=== PATIENT | male | born 2000 | race Caucasian/White ===

== ENCOUNTER 2020-11-27 20:46 | Inpatient (IN) | payer MEDICAID, SELFPAY ==
[~2020-11-27] VITALS: Ht 180.3 cm; Wt 101.6 kg
[2020-11-27 20:51] VITALS: BP 118/76
[2020-11-27] MEDS ORDERED: NACL 0.9% 1,000 ML IV ONE (20:55)
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
--- NOTE | 2020-11-27 21:00 | NUR ---
IV 20 G RAC EST. LABS DRAWN AND HAND GIVEN TO SINA CASE MANAGER SPECIALIST AT BEDSIDE.
[2020-11-27 21:10] LABS: BASOPHILS % (AUTO) 0.4 % (0.0-2.0); EOSINOPHILS # (AUTO) 0.1 K/uL (0-0.4); EOSINOPHILS % (AUTO) 1.2 % (0.0-4.0); HEMATOCRIT 45.5 % (36-52); HEMOGLOBIN 15.8 g/dL (12.0-18.0); LYMPHOCYTES # (AUTO) 1.6 K/uL (2.0-11.5); LYMPHOCYTES % (AUTO) 19.9 % (20.5-51.1); MEAN CORPUSCULAR HEMOGLOBIN 32 pg (27-31); MEAN CORPUSCULAR HGB CONC 35 g/dL (33-37); MEAN CORPUSCULAR VOLUME 93.1 fL (80-94); MONOCYTES # (AUTO) 0.7 K/uL (0.8-1.0); MONOCYTES % (AUTO) 9.2 % (1.7-9.3); NEUTROPHILS # (AUTO) 5.6 K/uL (1.8-7.7); NEUTROPHILS % (AUTO) 69.3 % (42.2-75.2); PLATELET COUNT (AUTO) 344 K/uL (140-450); RED BLOOD CELL COUNT(AUTO) 4.89 MIL/uL (4.20-6.10)
--- NOTE | 2020-11-27 21:27 | NUR ---
ermd at bedside.
[2020-11-27 21:29] LABS: ALBUMIN 4.7 g/dL (3.4-5.0); ANION GAP 16.6 (8-16); CARBON DIOXIDE 29.9 mmol/L (21-32); CREATININE 1.3 mg/dL (0.6-1.3); POTASSIUM 3.5 mmol/L (3.5-5.1); TOTAL BILIRUBIN 0.4 mg/dL (0.0-1.0)
[2020-11-27] MEDS ORDERED: MORPHINE SULFATE 4 MG/ML SYR IVP ONE (21:35)
[2020-11-27] MEDS ORDERED: ONDANSETRON 4 MG/2 ML VIAL IVP ONE (21:35)
[2020-11-27] MEDS ORDERED: NACL 0.9% 1,000 ML IV SCH (21:35)
--- NOTE | 2020-11-27 21:47 | NUR ---
CT WITH CONTRAST CONSENT OBTAINED.
--- NOTE | 2020-11-27 22:28 | NUR ---
PT TRANSPORTED TO CT VIA W/C
[2020-11-27] MEDS ORDERED: PANTOPRAZOLE 40 MG INJ VIAL IVP ONE (22:30)
--- NOTE | 2020-11-27 23:01 | NUR ---
PT AMBULATED TO RESTROOM WITH STEADY GAIT.
--- NOTE | 2020-11-27 23:03 | NUR ---
URINE SAMPLE WALKED TO LAB AND HAND GIVEN TO NINA SIBLEY TECH.
[2020-11-27 23:09] LABS: APPEARANCE,URINE SL CLOUDY (CLEAR); BILIRUBIN,URINE NEGATIVE (NEGATIVE); BLOOD, URINE NEGATIVE (NEGATIVE); COLOR,URINE YELLOW (YELLOW); LEUKOCYTE ESTERASE ,URINE NEGATIVE (NEGATIVE); NITRITE, URINE NEGATIVE (NEGATIVE); UGLUCOSE NEGATIVE (NEGATIVE)
--- NOTE | 2020-11-27 23:33 | NUR ---
MED REC CONTAINED. PT DENIES DAILY MEDICATION ADMINISTRATION.
--- NOTE | 2020-11-27 23:35 | NUR ---
LUCIE OF NARES COLLECTED AND HAND GIVEN TO VÍCTOR DIAMOND DIE MAKER, AT BEDSIDE.
--- NOTE | 2020-11-27 23:58 | NUR ---
PT REPORTS INCREASING PAIN, 01/04. ERMD MADE AWARE, AWAITING NEW ORDERS.
[2020-11-28] MEDS ORDERED: MORPHINE SULFATE 2 MG/ML SYR IVP ONE
[2020-11-28] MEDS ORDERED: POTASSIUM CHLORIDE 40 MEQ, LIDOCAINE MPF 1% 25 MG in NACL 0.9% 250 ML IV PRN (00:10)
[2020-11-28] MEDS ORDERED: ACETAMINOPHEN 325 MG TAB PO PRN (00:10)
[2020-11-28] MEDS ORDERED: ZOLPIDEM 5 MG TAB PO PRN (00:10)
[2020-11-28] MEDS ORDERED: MORPHINE SULFATE 2 MG/ML SYR IVP PRN (00:10)
[2020-11-28] MEDS ORDERED: DOCUSATE SODIUM 100 MG GELCAP PO PRN (00:10)
[2020-11-28] MEDS ORDERED: HYDROcodone/APAP 7.5/325 MG 1 TAB PO PRN (00:10)
[2020-11-28] MEDS ORDERED: guaiFENesin DM 200/20 MG-10 ML 10 ML UDC PO PRN (00:10)
[2020-11-28] MEDS ORDERED: ONDANSETRON 4 MG/2 ML VIAL IM/IVP PRN (00:10)
--- NOTE | 2020-11-28 00:25 | NUR ---
XRAY AT BEDSIDE.
[2020-11-28] MEDS: DEXT 5% /NACL 0.9% 1,000 ML IV SCH ×3 (00:43→14:28)
[2020-11-28 00:49] LABS: PROTHROMBIN TIME 9.7 secs (10.8-13.4)
[2020-11-28 00:50] LABS: CHOL/HDL RATIO 2.2 (1-4.5); FREE T4 (FREE THYROXINE) 1.03 ng/dL (0.76-1.46); MAGNESIUM 1.9 mg/dL (1.8-2.4); PHOSPHORUS 3.4 mg/dL (2.5-4.9); THYROID STIMULATING HORMONE 2.24 uIU/mL (0.34-3.74)
[2020-11-28 00:58] LABS: BARBITURATE, URINE NEGATIVE ng/ml (NEG <=200); BENZODIAZEPINE, URINE NEGATIVE ng/mL (NEG <=200); CANNABINOID, URINE NEGATIVE ng/mL (NEG <=50); COCAINE, URINE POSITIVE ng/mL (NEG <=300); OPIATE, URINE POSITIVE ng/mL (NEG <=2000); PHENCYCLIDINE SCREEN,URINE NEGATIVE ng/mL (NEG <=25)
--- NOTE | 2020-11-28 01:03 | NUR ---
CALLED ASHLEE DA SILVA TO GIVE PT REPORT. ETA FROM ER TO FLOOR APPROXIMATELY 5-10MINS.
--- NOTE | 2020-11-28 01:08 | NUR ---
Patient will be admitted to care of DR. RIDLEY . Admited to [facility]. Will go to room 120B. Belongings list completed. Pt w/c assisted to the floor by EMT at this time.
[2020-11-28 01:15] VITALS: BP 131/68
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
--- NOTE | 2020-11-28 03:21 | NUR ---
ASLEEP, AROUSABLE TO VERBAL, NO DISTRESS, FIXED IV PUMP BECAUSE IT'S BEEPING, CALL LIGHT WITHIN REACH.
[2020-11-28 04:00] VITALS: BP 99/50
--- NOTE | 2020-11-28 07:43 | NUR ---
PATIENT IS STABLE, NO DISTRESS, ALL NEEDS ATTENDED, KEPT COMFORTABLE, CALL LIGHT WITHIN REACH, BEDSIDE ENDORSEMENT GIVEN TO AM SHIFT RN.
--- NOTE | 2020-11-28 07:44 | NUR ---
RECEIVED REPORT FROM HEEL ROOM SUPERVISOR NURSE. PATIENT LYING DOWN IN BED SLEEPING, AROUSABLE BY VOICE. NO DISTRESS NOTED. DENIES ANY PAIN. DENIES NAUSEA/VOMITING AT THIS TIME. AAOX4, IV SITE INTACT, PATENT, AND INFUSING IVF PER MD ORDERS. REVIEWED PLAN OF CARE WITH PATIENT. PATIENT VERBALIZED UNDERSTANDING. SAFETY MEASURES IN PLACE, CALL LIGHT WITHIN REACH. WILL CONTINUE TO MONITOR.
[2020-11-28 08:00] VITALS: BP 99/50
--- NOTE | 2020-11-28 08:37 | NUR ---
SCHEDULED MEDICATIONS DUE GIVEN. WILL CONTINUE TO MONITOR.
[2020-11-28] MEDS ORDERED: PANTOPRAZOLE 40 MG INJ VIAL IVP SCH (09:00)
--- NOTE | 2020-11-28 09:00 | NUR ---
PATIENT HAS BEEN SCREENED AND CATEGORIZED MODERATE NUTRITION RISK. PATIENT WILL BE SEEN WITHIN 3-5 DAYS OF ADMISSION. 11/30/20 12/02/[address]
--- NOTE | 2020-11-28 11:00 | NUR ---
SBO FOLLOW THROUGH COMPLETED AT THIS TIME. WILL CONTINUE TO MONITOR.
--- NOTE | 2020-11-28 12:34 | NUR ---
PATIENT LYING DOWN IN BED TALKING WITH FAMILY ON PHONE. NO DISTRESS NOTED. DENIES PAIN AND NAUSEA AFTER EATING FULL LIQUID LUNCH. WILL CONTINUE TO MONITOR.
[2020-11-28 16:00] VITALS: BP 95/55
--- NOTE | 2020-11-28 17:00 | NUR ---
PATIENT WANTS TO LEAVE AMA, FEELS BETTER. SURGEON DR. SHRESTHA CLEARED PATIENT TO GO HOME TODAY IF HE TOLERATES SOFT DIET. PATIENT TOLERATED PUDDINGS AND WANTS TO GO HOME BECAUSE HE NEEDS TO TAKE CARE OF HIS CHILD TONIGHT. NOTIFIED DR. RIDLEY. DR. RIDLYE VERBALIZED UNDERSTANDING. IV SITE REMOVED WITH MINIMAL BLOOD AND LUMEN COMPLETELY INTACT. PATIENT LEFT AMA AT THIS TIME IN STABLE CONDITION.
[2020-11-29 12:07] LABS: T4 (THYROXINE) 7.1 ug/dL (4.5-12.0)
== END 2020-11-28 17:00 | disposition left against medical advice (07) | DRG 252 ==
LOC: MED 20:46 → MMU 11-28 00:07 → MTU 11-28 01:04
PROVIDERS: ADMIT Family Medicine; ATTEND Family Medicine
DX: K66.0 Peritoneal adhesions (postprocedural) (postinfection) (principal); E87.2 Acidosis; F17.210 Nicotine dependence, cigarettes, uncomplicated; Q63.1 Lobulated, fused and horseshoe kidney; R74.01 Elevation of levels of liver transaminase levels; E78.5 Hyperlipidemia, unspecified; Z53.29 Procedure and treatment not carried out because of patient's decision for other reasons; Z20.822 Contact with and (suspected) exposure to COVID-19
CPT/HCPCS: 36415; 71045; 74250; 80053; 80305; 81003; 82150; 83036; 83605; 83690; 83735; 83880; 84100; 84436; 84439; 84443; 84479; 84484; 85025; 85610; 85730; 87081; 96361; 96374; 96375; 96376; 99291; 99292; C9113; J2270; J2405; Q9967

== ENCOUNTER 2021-02-23 16:30 | Emergency (ER) | payer MEDICAID, SELFPAY ==
[~2021-02-23] VITALS: Ht 180.3 cm; Wt 102.1 kg
[2021-02-23 16:42] VITALS: BP 156/76
[2021-02-23] MEDS ORDERED: MORPHINE SULFATE 4 MG/ML SYR IVP ONE (16:55)
[2021-02-23] MEDS ORDERED: NACL 0.9% 1,000 ML IV ONE (16:55)
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
--- NOTE | 2021-02-23 17:00 | NUR ---
DR VELA AT BEDSIDE EXAMINING PT
--- NOTE | 2021-02-23 17:15 | NUR ---
PT TAKEN TO CT SCAN VIA W/C
--- NOTE | 2021-02-23 17:20 | NUR ---
BLOOD LABS COLLECTED AND SENT TO LAB
--- NOTE | 2021-02-23 17:20 | NUR ---
PT RETURNED FROM CT SCAN
[2021-02-23 17:31] LABS: BASOPHILS % (AUTO) 0.5 % (0.0-2.0); EOSINOPHILS # (AUTO) 0.1 K/uL (0-0.4); EOSINOPHILS % (AUTO) 1.1 % (0.0-4.0); HEMATOCRIT 39.9 % (36-52); HEMOGLOBIN 13.7 g/dL (12.0-18.0); LYMPHOCYTES % (AUTO) 15.5 % (20.5-51.1); MEAN CORPUSCULAR HEMOGLOBIN 32 pg (27-31); MEAN CORPUSCULAR HGB CONC 34 g/dL (33-37); MEAN CORPUSCULAR VOLUME 93.2 fL (80-94); MONOCYTES # (AUTO) 0.5 K/uL (0.8-1.0); MONOCYTES % (AUTO) 7.9 % (1.7-9.3); NEUTROPHILS # (AUTO) 4.8 K/uL (1.8-7.7); PLATELET COUNT (AUTO) 247 K/uL (140-450); RED BLOOD CELL COUNT(AUTO) 4.28 MIL/uL (4.20-6.10); RED CELL DISTRIBUTION WIDTH 13.5 % (11.6-13.7); WHITE BLOOD COUNT (AUTO) 6.5 K/uL (4.8-10.8)
[2021-02-23 17:40] LABS: ANION GAP 12.2 (8-16); CARBON DIOXIDE 26.7 mmol/L (21-32); CREATININE 1.1 mg/dL (0.6-1.3); POTASSIUM 3.9 mmol/L (3.5-5.1); TOTAL BILIRUBIN 0.4 mg/dL (0.0-1.0)
[2021-02-23] MEDS ORDERED: DICYCLOMINE HCL LIQUID 10 MG/5 ML UDC ONE (17:48)
[2021-02-23] MEDS ORDERED: ALUMINUM HYD/MAG/SIMETHICONE 30 ML UDC ONE (17:48)
[2021-02-23] MEDS ORDERED: ONDA4TAB PO (17:56)
[2021-02-23] MEDS ORDERED: FAMO-90 PO (17:56)
--- NOTE | 2021-02-23 18:00 | NUR ---
PT STATES "THE PAIN IS COMING BACK" GI COCKTAIL ADMINISTERED.
[2021-02-23] MEDS: DICYCLOMINE HCL LIQUID 20 MG, ALUMINUM HYD/MAG/SIMETHICONE 30 ML, LIDOCAINE VISCOUS 2% ... PO ONE ×6 (18:04→18:12)
[2021-02-23 18:30] VITALS: BP 139/52
--- NOTE | 2021-02-23 18:30 | NUR ---
Patient discharged with v/s stable. Written and verbal after care instructions given and explained. Patient alert, oriented and verbalized understanding of instructions. Ambulatory with steady gait. All questions addressed prior to discharge. ID band removed. Patient advised to follow up with PMD. Rx of PEPCID AND ZOFRAN given. Patient educated on indication of medication including possible reaction and side effects. Opportunity to ask questions provided and answered.
[2021-02-23 19:15] LABS: APPEARANCE,URINE CLEAR (CLEAR); BILIRUBIN,URINE NEGATIVE (NEGATIVE); BLOOD, URINE NEGATIVE (NEGATIVE); COLOR,URINE YELLOW (YELLOW); LEUKOCYTE ESTERASE ,URINE NEGATIVE (NEGATIVE); NITRITE, URINE NEGATIVE (NEGATIVE); UGLUCOSE NEGATIVE (NEGATIVE)
== END 2021-02-23 18:30 | disposition home or self-care (01) ==
LOC: MED 16:30
DX: R10.12 Left upper quadrant pain (principal); R11.10 Vomiting, unspecified; R10.11 Right upper quadrant pain; Z98.890 Other specified postprocedural states
CPT/HCPCS: 36415; 74176; 80053; 81003; 83605; 83690; 85025; 87040; 96361; 96374; 99284; J2270; J7030

== ENCOUNTER 2021-12-11 18:56 | Emergency (ER) | payer MEDICAID ==
[~2021-12-11] VITALS: Ht 180.3 cm; Wt 101.2 kg
[~2021-12-11 18:56] MED LIST: FAMO-90 PO; ONDA4TAB PO
[2021-12-11 19:02] VITALS: BP 127/55
[2021-12-11] MEDS ORDERED: NACL 0.9% 1,000 ML IV SCH (19:25)
[2021-12-11] MEDS ORDERED: MORPHINE SULFATE 4 MG/ML SYR IVP ONE ×2 (19:25→22:15)
[2021-12-11] MEDS ORDERED: ONDANSETRON 4 MG/2 ML VIAL IVP ONE (19:25)
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
[2021-12-11 20:10] LABS: BASOPHILS % (AUTO) 0.5 % (0.0-2.0); EOSINOPHILS # (AUTO) 0.1 K/uL (0-0.4); EOSINOPHILS % (AUTO) 2.5 % (0.0-4.0); HEMATOCRIT 38.9 % (36-52); HEMOGLOBIN 13.2 g/dL (12.0-18.0); LYMPHOCYTES # (AUTO) 1.6 K/uL (2.0-11.5); LYMPHOCYTES % (AUTO) 28.9 % (20.5-51.1); MEAN CORPUSCULAR HEMOGLOBIN 31 pg (27-31); MEAN CORPUSCULAR HGB CONC 34 g/dL (33-37); MEAN CORPUSCULAR VOLUME 90.8 fL (80-94); MONOCYTES # (AUTO) 0.5 K/uL (0.8-1.0); MONOCYTES % (AUTO) 8.9 % (1.7-9.3); NEUTROPHILS # (AUTO) 3.2 K/uL (1.8-7.7); NEUTROPHILS % (AUTO) 59.2 % (42.2-75.2); PLATELET COUNT (AUTO) 345 K/uL (140-450); RED BLOOD CELL COUNT(AUTO) 4.28 MIL/uL (4.20-6.10); RED CELL DISTRIBUTION WIDTH 13.1 % (11.6-13.7); WHITE BLOOD COUNT (AUTO) 5.5 K/uL (4.8-10.8)
--- NOTE | 2021-12-11 20:18 | NUR ---
PT BROUGHT BACK FROM CT. PT STATES RELIEF FROM PAIN.
[2021-12-11 21:15] LABS: ALBUMIN 4.1 g/dL (3.4-5.0); ANION GAP 15.9 (8-16); CARBON DIOXIDE 23.1 mmol/L (21-32); CREATININE 0.9 mg/dL (0.6-1.3); TOTAL BILIRUBIN 0.5 mg/dL (0.0-1.0)
--- NOTE | 2021-12-11 21:33 | NUR ---
Patient appears to be resting comfortably in bed. Vital Signs within normal limits. Respirations even and unlabored. VITALS SIGNS NORMAL FOR PT
[2021-12-11] MEDS ORDERED: ONDA8TAB87 PO (22:23)
[2021-12-11] MEDS ORDERED: ACET-8386 PO (22:23)
[2021-12-11] MEDS ORDERED: IBUP-2213 PO (22:23)
[2021-12-11 22:36] VITALS: BP 138/37
--- NOTE | 2021-12-11 22:36 | NUR ---
Patient discharged with v/s stable. Written and verbal after care instructions given and explained. Patient alert, oriented and verbalized understanding of instructions. Ambulatory with steady gait. All questions addressed prior to discharge. ID band removed. Patient advised to follow up with PMD. Rx of [id number], IBUPROFEN, ZOFRAN given. Opportunity to ask questions provided and answered.
--- NOTE | 2021-12-11 22:54 | NUR ---
The patient's care was reviewed and supervised by Genoveva Reeves RN.
[2021-12-11] MEDS ORDERED: ACET-5629 PO (23:10)
== END 2021-12-11 22:36 | disposition home or self-care (01) ==
LOC: MED 18:56
DX: R10.12 Left upper quadrant pain (principal); Z79.899 Other long term (current) drug therapy; Z98.890 Other specified postprocedural states
CPT/HCPCS: 36415; 74176; 80053; 83690; 85025; 96361; 96374; 96375; 96376; 99284; J2270; J2405; J7030

== ENCOUNTER 2022-02-02 10:32 | Emergency (ER) | payer MEDICAID ==
[~2022-02-02] VITALS: Ht 182.9 cm; Wt 103.9 kg
[~2022-02-02 10:32] MED LIST changes: +ACET-5629 PO; +IBUP-2213 PO; +ONDA8TAB87 PO
[2022-02-02 10:36] VITALS: BP 153/56
--- NOTE | 2022-02-02 10:39 | NUR ---
pt ambulated to lobby with steady gait
--- NOTE | 2022-02-02 10:44 | NUR ---
21 y/o male bib self c/o of swollen left side of face after popping a pimple yesterday. noted swelling extending from his cheek to the right eye/ denies any respiratory symptoms, area does not appear red, denies any pain nka pmh: denies
--- NOTE | 2022-02-02 11:17 | NUR ---
PA MOSQUERA AT PT SIDE FOR EVAL
[2022-02-02] MEDS ORDERED: IBUP-2213 PO (11:23)
[2022-02-02] MEDS ORDERED: CEPH-588 PO (11:23)
--- NOTE | 2022-02-02 11:27 | NUR ---
Patient discharged with v/s stable. Written and verbal after care instructions given. Patient alert, oriented and verbalized understanding of instructions. Ambulatory with steady gait. All questions addressed prior to discharge. ID band removed. Patient advised to follow up with PMD. Rx of Ibuproden and Keflex given. Opportunity to ask questions provided and answered.
== END 2022-02-02 11:34 | disposition home or self-care (01) ==
LOC: MED 10:32
DX: L03.211 Cellulitis of face (principal); R03.0 Elevated blood-pressure reading, without diagnosis of hypertension
CPT/HCPCS: 99284

== ENCOUNTER 2023-05-06 17:33 | Emergency (ER) | payer MEDICAID ==
[~2023-05-06] VITALS: Ht 180.3 cm; Wt 102.1 kg
[~2023-05-06 17:33] MED LIST changes: +CEPH-588 PO
[2023-05-06 17:37] VITALS: BP 130/82; PULSE 82; RESP 18; TEMP 97.5; O2SAT 98
[2023-05-06] MEDS ORDERED: LIDOCAINE/EPI MPF 1%1:200000 30 ML VIAL INJ ONE (18:15)
[2023-05-06 18:34] VITALS: BP 130/82; PULSE 82; RESP 18; TEMP 97.5; O2SAT 98
[2023-05-06] MEDS ORDERED: SULFAMETH/TRIMETH DS 800/160MG 1 TAB PO ONE (19:30)
[2023-05-06] MEDS ORDERED: cephALEXin 500 MG CAP PO ONE (19:30)
[2023-05-06] MEDS ORDERED: KETOROLAC 60 MG/2 ML VIAL IM ONE (19:30)
[2023-05-06] MEDS ORDERED: CEPH-588 PO (19:32)
[2023-05-06] MEDS ORDERED: SULF-59 PO (19:36)
[2023-05-06] MEDS ORDERED: NAPR-54 PO (20:17)
== END 2023-05-06 20:43 | disposition home or self-care (01) ==
LOC: MED 17:33
DX: S00.31XA Abrasion of nose, initial encounter (principal); L02.416 Cutaneous abscess of left lower limb; L02.415 Cutaneous abscess of right lower limb; L03.116 Cellulitis of left lower limb; L03.115 Cellulitis of right lower limb; Z79.899 Other long term (current) drug therapy; Z79.2 Long term (current) use of antibiotics; Z79.1 Long term (current) use of non-steroidal anti-inflammatories (NSAID); V89.2XXA Person injured in unspecified motor-vehicle accident, traffic, initial encounter; Y93.89 Activity, other specified; Y92.410 Unspecified street and highway as the place of occurrence of the external cause; Y99.8 Other external cause status
CPT/HCPCS: 10060; 90471; 90715; 96372; 99284; J1885; J2001

== ENCOUNTER 2023-05-08 16:28 | Emergency (ER) | payer MEDICAID ==
[~2023-05-08] VITALS: Ht 180.3 cm; Wt 103.4 kg
[~2023-05-08 16:28] MED LIST changes: +NAPR-54 PO; +SULF-59 PO
[2023-05-08 17:03] VITALS: BP 131/84; PULSE 63; RESP 20; TEMP 98.7; O2SAT 100
== END 2023-05-08 18:11 | disposition home or self-care (01) ==
LOC: MED 16:28
DX: L02.416 Cutaneous abscess of left lower limb (principal); L02.415 Cutaneous abscess of right lower limb
CPT/HCPCS: 99282

== ENCOUNTER 2023-08-02 10:19 | Emergency (ER) | payer MEDICAID ==
[~2023-08-02] VITALS: Ht 180.3 cm; Wt 102.1 kg
[2023-08-02 10:26] VITALS: BP 158/70; PULSE 67; RESP 17; TEMP 97.4; O2SAT 98
== END 2023-08-02 12:00 | disposition left against medical advice (07) ==
LOC: MED 10:19
DX: S71.101A Unspecified open wound, right thigh, initial encounter (principal); M79.671 Pain in right foot; R20.2 Paresthesia of skin; Z53.21 Procedure and treatment not carried out due to patient leaving prior to being seen by health care provider; W18.39XA Other fall on same level, initial encounter; Y92.89 Other specified places as the place of occurrence of the external cause; Y93.89 Activity, other specified; Y99.8 Other external cause status
CPT/HCPCS: 99281